=== PATIENT | male | born 1975 | race Caucasian/White ===

== ENCOUNTER 2018-08-03 03:36 | Emergency (ER) | payer SELFPAY ==
[2018-08-03] MEDS ORDERED: Albuterol/Ipratropium 3.0-0.5 MG/3 ML Neb Soln ONE ×3 (03:38→05:10)
[2018-08-03] MEDS ORDERED: methylPREDNISolone Sodium Succinate 125 MG/2 ML SDV ONE ×2 (03:41→03:42)
[2018-08-03] MEDS ORDERED: Sodium Chloride 0.9% 1,000 ML IV ONE (03:48)
[2018-08-03] MEDS ORDERED: Sodium Chloride 0.9% 10 ML Syringe FLUSH PRN (03:48)
[2018-08-03] MEDS ORDERED: Sodium Chloride 0.9% 2.5 ML Syringe FLUSH PRN (03:48)
[2018-08-03] MEDS ORDERED: Magnesium Sulfate/Water 2 GM in Premix Bag 1 BAG IV ONE (03:49)
[2018-08-03] MEDS ORDERED: LORazepam 2 MG/ML SDV IVPUSH ONE ×2 (03:49→04:03)
--- NOTE | 2018-08-03 03:59 | EDM.PDOC ---
ED HPI GENERAL MEDICAL PROBLEM - General Stated Complaint: ASTHMA ATTACK Time Seen by Provider: 08/03/18 03:47 - History of Present Illness INITIAL COMMENTS - FREE TEXT/NARRATIVE: HISTORY AND PHYSICAL: History of present illness: The patient is a 43-year-old male who has no stated history of pulmonary problems presents having an acute bronchospastic attack. According to the history which is sketchy from the patient but more from his girlfriend he has had coughing and shortness of breath for the last 2 or 3 days and it seemed to accelerate suddenly this evening where he couldn't get his breath and couldn't really do anything more than moan. Consider calling 911 she put him in the car and drove here. She tells me that he does smoke cigars but not cigarettes and has no drug use. She says that something similar to this happen a few years ago and he has since followed up with Dr. Bowen [facility] who gave him an inhaler which he uses just as needed. He has not had a recent fever he has no cardiac history and has no chest pain. He's had no abdominal pain nausea or vomiting. Girlfriend says he has had a slight cough but it was more dry. Her friend says that she does live with them and she is not ill or having any cough or shortness of breath and she does not believe that there has been any gas or carbon monoxide exposure in the home. She says the patient does not work with any chemicals or aerosols that could've aggravated him. On arrival here the patient can answer simple yes or no questions but is in extremis Review of systems: As per history of present illness and below otherwise all systems reviewed and negative. Past medical history: As per history of present illness and as reviewed below otherwise noncontributory. Surgical history: As per history of present illness and as reviewed below otherwise noncontributory. Social history: No reported history of drug or alcohol abuse. Family history: As per history of present illness and as reviewed below otherwise noncontributory. Physical exam: General: Well-developed well-nourished mildly overweight man who is nontoxic and on arrival is frantic moaning saying that he can't breathe and is cyanotic. He ran into the ED and was very anxious on arrival pacing and initial O2 sat was not able to be obtained as I was trying to coax the patient into the bed and place oxygen on him. Once oxygen was placed on the patient he pinked up immediately in the first 1 minute and his sats went recorded went from 80s up to 98. HEENT: Atraumatic, normocephalic, pupils reactive, negative for conjunctival pallor or scleral icterus, mucous membranes moist, throat clear, neck supple, nontender, trachea midline. Lungs: inspiratory and expiratory wheezing throughout all lung vaughn with diminished breath sounds at the bases left greater than right, there is abdominal work of breathing, there is no stridor,breath sounds equal bilaterally , chest nontender. Heart: S1S2, regular rhythm and tachycardic rate on my evaluation no overt murmurs appreciated Abdomen: Soft, nondistended, nontender. NABS Pelvis: Stable nontender. Genitourinary: Deferred. Rectal: Deferred. Extremities: Atraumatic, negative for cords or calf pain. Neurovascular unremarkable. no pedal edema Neuro: Awake, alert, oriented. Cranial nerves II through XII unremarkable. Cerebellum unremarkable. Motor and sensory unremarkable throughout. Exam nonfocal. Skin: Patient is very diaphoretic and on initial visual inspection was cyanotic throughout including his head and face. Once oxygen was applied that improved significantly within 1 minute. He does continue to moan throughout initial evaluation and care. Diagnostics: EKG portable chest x-ray CBC CMP magnesium ABG lactic acid Therapeutics: continuous duo nebs, Solu-Medrol, IV fluids, IV O2 monitor, magnesium Ativan Rocephin 0402: Patient is improving and moving much more air sats are good and he is now starting to be able to talk and he does verbalize that he is feeling better but he is still very anxious and fidgety in bed. We will continue with our treatment and continue to try to onsite health coach him and perform an ABG 0410: Patient clinically is improving but is still working to breathe and seems somewhat fatigued. At this point we will see with the ABG shows but I told the patient that I have a low threshold to intubate him and transfer him. I will also have a discussion with the girlfriend about this. 0425: As patient's ABG is showing acidosis with CO2 retention and he continues to become more drowsy we will go ahead and electively intubate him. Anesthesia is here at bedside and will perform the procedure please see their note. Flight team has been called for and is in route. I discussed this case at this time with Dr. Rashid at [facility] in the ER who accepts him for transfer. Girlfriend is at bedside and is aware of the plan and I've told the patient of my plan but I am unclear if he is understanding. I will continue to monitor his testing results and I will give him a dose of Rocephin and check a lactic acid for his elevated white cell count. Critical care time excluding procedures:31min Impression: Acute bronchospasm/respiratory distress with hypoxia Definitive disposition and diagnosis as appropriate pending reevaluation and review of above. - Related Data Allergies Allergy/AdvReac Type Severity Reaction Status Date / Time No Known Allergies Allergy Verified 08/03/18 04:14 Home Meds: Home Meds Albuterol Sulfate [Proair Hfa] 1 puff INH ASDIRECTED 08/03/18 [History] ED ROS GENERAL - Review of Systems Review Of Systems: ROS reveals no pertinent complaints other than HPI. ED EXAM, GENERAL - Physical Exam Exam: See Below (See dictation) Course - Vital Signs Last Recorded V/S: Last Vital Signs Temp 36.1 C 08/03/18 03:36 Pulse 146 H 08/03/18 04:25 Resp 34 H 08/03/18 04:25 BP 133/88 08/03/18 04:25 Pulse Ox 97 08/03/18 04:25 - Orders/Labs/Meds Orders: Active Orders 24 hr Category Date Time Status Cardiac Monitoring [RC] . DIRECTED Care 08/03/18 03:47 Active EKG Documentation Completion [RC] STAT Care 08/03/18 03:47 Active Oxygen Therapy, ED [RC] ASDIRECTED Care 08/03/18 03:47 Active Pulse Oximetry [RC] ASDIRECTED Care 08/03/18 03:47 Active RT Aerosol Therapy [RC] ASDIRECTED Care 08/03/18 04:05 Active RT Aerosol Therapy [RC] ASDIRECTED Care 08/03/18 04:09 Active RT Aerosol Therapy [RC] ASDIRECTED Care 08/03/18 04:09 Active Chest 1V Frontal [CR] Stat Exams 08/03/18 03:48 Taken DRUG SCREEN, URINE [URCHEM] Stat Lab 08/03/18 04:25 Ordered Magnesium Sulfate/Water [Magnesium Sulfate 2 GM in Med 08/03/18 03:49 Active Water 50 ML] 2 gm Premix Bag 1 bag IV ONETIME Sodium Chloride 0.9% [Normal Saline] 1,000 ml Med 08/03/18 03:48 Active IV STAT Sodium Chloride 0.9% [Saline Flush] Med 08/03/18 03:48 Active 10 ml FLUSH ASDIRECTED PRN Sodium Chloride 0.9% [Saline Flush] Med 08/03/18 03:48 Active 2.5 ml FLUSH ASDIRECTED PRN cefTRIAXone [Rocephin in Dextrose,Iso-Osm 2 GM/50 ML] 2 Med 08/03/18 04:26 Ordered gm Premix Bag 1 bag IV ONETIME Saline Lock Insert [OM.PC] Stat Oth 08/03/18 03:47 Ordered Medication Orders Sodium Chloride (Normal Saline) 1,000 mls @ 999 mls/hr IV STAT ONE Stop: 08/03/18 04:48 Last Admin: 08/03/18 03:50 Dose: 999 mls/hr Magnesium Sulfate 2 gm/ Premix 50 mls @ 25 mls/hr IV ONETIME ONE Stop: 08/03/18 05:48 Last Admin: 08/03/18 04:00 Dose: 25 mls/hr Ceftriaxone Sodium/Dextrose 2 (gm/ Premix) 50 mls @ 100 mls/hr IV ONETIME ONE Stop: 08/03/18 04:55 Sodium Chloride (Saline Flush) 10 ml FLUSH ASDIRECTED PRN PRN Reason: Keep Vein Open Sodium Chloride (Saline Flush) 2.5 ml FLUSH ASDIRECTED PRN PRN Reason: Keep Vein Open Labs: Laboratory Tests 08/03/18 08/03/18 08/03/18 Range/Units 03:35 03:35 04:01 WBC 28.73 H (4.0-11.0) K/uL RBC 5.45 (4.50-5.90) M/uL Hgb 16.5 (13.0-17.0) g/dL Hct 48.7 (38.0-50.0) % MCV 89.4 (80.0-98.0) fL MCH 30.3 (27.0-32.0) pg MCHC 33.9 (31.0-37.0) g/dL RDW Std Deviation 45.4 (28.0-62.0) fl RDW Coeff of Nathalie 14 (11.0-15.0) % Plt Count 357 (150-400) K/uL MPV 8.90 (7.40-12.00) fL Add Manual Diff YES Neutrophils % (Manual) 55 (48.0-80.0) % Band Neutrophils % 1 % Lymphocytes % (Manual) 29 (16.0-40.0) % Monocytes % (Manual) 7 (0.0-15.0) % Eosinophils % (Manual) 8 H (0.0-7.0) % Nucleated RBC % 0.0 /100WBC Absolute Seg Neuts 15.8 H (1.4-5.7) Band Neutrophils # 0.3 Lymphocytes # (Manual) 8.3 H (0.6-2.4) Monocytes # (Manual) 2.0 H (0.0-0.8) Eosinophils # (Manual) 2.3 H (0.0-0.7) Nucleated RBCs # 0 K/uL ABG pH 7.264 L (7.35-7.45) ABG pCO2 60 H (35-45) mmHG ABG pO2 92 (75-100) mmHG ABG HCO3 27 H (22-26) mEq/L ABG Total CO2 24.5 ABG Base Excess -1.3 (-2.0-2.0) Lactate (0.20-2.00) mmol/L Sodium 141 (136-148) mmol/L Potassium 3.3 L (3.5-5.1) mmol/L Chloride 102 (98-107) mmol/L Carbon Dioxide 25.9 (21.0-32.0) mmol/L BUN 13 (7.0-18.0) mg/dL Creatinine 1.4 H (0.8-1.3) mg/dL Est Cr Clr Drug Dosing TNP Estimated GFR (MDRD) 55.6 ml/min Glucose 177 H (74-106) mg/dL Calcium 9.3 (8.5-10.1) mg/dL Magnesium 2.7 H (1.8-2.4) mg/dL Total Bilirubin 0.5 (0.2-1.0) mg/dL AST 26 (15-37) IU/L ALT 32 (14-63) IU/L Alkaline Phosphatase 98 (46-116) U/L Total Protein 7.9 (6.4-8.2) g/dL Albumin 4.1 (3.4-5.0) g/dL Globulin 3.8 H (2.0-3.5) g/dL Albumin/Globulin Ratio 1.1 L (1.3-2.8) 08/03/18 Range/Units 04:01 WBC (4.0-11.0) K/uL RBC (4.50-5.90) M/uL Hgb (13.0-17.0) g/dL Hct (38.0-50.0) % MCV (80.0-98.0) fL MCH (27.0-32.0) pg MCHC (31.0-37.0) g/dL RDW Std Deviation (28.0-62.0) fl RDW Coeff of Nathalie (11.0-15.0) % Plt Count (150-400) K/uL MPV (7.40-12.00) fL Add Manual Diff Neutrophils % (Manual) (48.0-80.0) % Band Neutrophils % % Lymphocytes % (Manual) (16.0-40.0) % Monocytes % (Manual) (0.0-15.0) % Eosinophils % (Manual) (0.0-7.0) % Nucleated RBC % /100WBC Absolute Seg Neuts (1.4-5.7) Band Neutrophils # Lymphocytes # (Manual) (0.6-2.4) Monocytes # (Manual) (0.0-0.8) Eosinophils # (Manual) (0.0-0.7) Nucleated RBCs # K/uL ABG pH (7.35-7.45) ABG pCO2 (35-45) mmHG ABG pO2 (75-100) mmHG ABG HCO3 (22-26) mEq/L ABG Total CO2 ABG Base Excess (-2.0-2.0) Lactate 2.0 (0.20-2.00) mmol/L Sodium (136-148) mmol/L Potassium (3.5-5.1) mmol/L Chloride (98-107) mmol/L Carbon Dioxide (21.0-32.0) mmol/L BUN (7.0-18.0) mg/dL Creatinine (0.8-1.3) mg/dL Est Cr Clr Drug Dosing Estimated GFR (MDRD) ml/min Glucose (74-106) mg/dL Calcium (8.5-10.1) mg/dL Magnesium (1.8-2.4) mg/dL Total Bilirubin (0.2-1.0) mg/dL AST (15-37) IU/L ALT (14-63) IU/L Alkaline Phosphatase (46-116) U/L Total Protein (6.4-8.2) g/dL Albumin (3.4-5.0) g/dL Globulin (2.0-3.5) g/dL Albumin/Globulin Ratio (1.3-2.8) Meds: Medications Generic Name Dose Route Start Last Admin Trade Name Freq PRN Reason Stop Dose Admin Sodium Chloride 1,000 mls @ 999 mls/hr 08/03/18 03:48 08/03/18 03:50 Normal Saline IV 08/03/18 04:48 999 mls/hr STAT ONE Administration Magnesium Sulfate 2 gm/ Premix 50 mls @ 25 mls/hr 08/03/18 03:49 08/03/18 04: 00 IV 08/03/18 05:48 25 mls/hr ONETIME ONE Administration Ceftriaxone Sodium/Dextrose 2 50 mls @ 100 mls/hr 08/03/18 04:26 gm/ Premix IV 08/03/18 04:55 ONETIME ONE Sodium Chloride 10 ml 08/03/18 03:48 Saline Flush FLUSH ASDIRECTED PRN Keep Vein Open Sodium Chloride 2.5 ml 08/03/18 03:48 Saline Flush FLUSH ASDIRECTED PRN Keep Vein Open Discontinued Medications Generic Name Dose Route Start Last Admin Trade Name Freq PRN Reason Stop Dose Admin Albuterol/Ipratropium 3 ml 08/03/18 04:05 08/03/18 04:08 Duoneb 3.0-0.5 Mg/3 Ml NEB 08/03/18 04:06 3 ml ONETIME ONE Administration Albuterol/Ipratropium 3 ml 08/03/18 04:09 08/03/18 04:10 Duoneb 3.0-0.5 Mg/3 Ml NEB 08/03/18 04:10 3 ml ONETIME ONE Administration Albuterol/Ipratropium 3 ml 08/03/18 04:09 08/03/18 04:14 Duoneb 3.0-0.5 Mg/3 Ml NEB 08/03/18 04:10 3 ml ONETIME ONE Administration Ceftriaxone Sodium/Dextrose Confirm 08/03/18 04:28 Rocephin In Dextrose,Iso-Osm 2 Gm/50 Ml Administered 08/03/18 04:29 Dose 50 mls @ as directed .ROUTE .STK-MED ONE Lorazepam 0.5 mg 08/03/18 03:49 08/03/18 04:01 Ativan IVPUSH 08/03/18 03:50 0.5 mg ONETIME ONE Administration Lorazepam 0.5 mg 08/03/18 04:03 08/03/18 04:06 Ativan IVPUSH 08/03/18 04:04 Not Given ONETIME ONE Lorazepam 1 mg 08/03/18 04:05 08/03/18 04:08 Ativan IVPUSH 08/03/18 04:06 1 mg ONETIME STA Administration Lorazepam Confirm 08/03/18 04:05 08/03/18 04:10 Ativan Administered 08/03/18 04:06 Not Given Dose 2 mg .ROUTE .STK-MED ONE Methylprednisolone Sodium Succinate Confirm 08/03/18 03:41 08/03/18 04:10 Solu-Medrol Administered 08/03/18 03:42 Not Given Dose 125 mg .ROUTE .STK-MED ONE Methylprednisolone Sodium Succinate Confirm 08/03/18 03:42 08/03/18 04:00 Solu-Medrol Administered 08/03/18 03:43 125 mg Dose Administration 125 mg .ROUTE .STK-MED ONE Departure - Departure Time of Disposition: 04:32 Disposition: DC/Tfer to Acute Hospital 02 Condition: Critical Clinical Impression: Hypoxemia, CO2 retention Asthma with status asthmaticus Qualifiers: Asthma severity: severe Asthma persistence: unspecified Qualified Code(s): J45.902 - Unspecified asthma with status asthmaticus - Discharge Information Referrals: PCP,None [Primary Care Provider] - - My Orders Last 24 Hours: My Active Orders 08/03/18 03:47 Cardiac Monitoring [RC] . DIRECTED EKG Documentation Completion [RC] STAT Oxygen Therapy, ED [RC] ASDIRECTED Pulse Oximetry [RC] ASDIRECTED Saline Lock Insert [OM.PC] Stat 08/03/18 03:48 Chest 1V Frontal [CR] Stat Sodium Chloride 0.9% [Normal Saline] 1,000 ml IV STAT Sodium Chloride 0.9% [Saline Flush] 10 ml FLUSH ASDIRECTED PRN Sodium Chloride 0.9% [Saline Flush] 2.5 ml FLUSH ASDIRECTED PRN 08/03/18 03:49 Magnesium Sulfate/Water [Magnesium Sulfate 2 GM in Water 50 ML] 2 gm Premix Bag 1 bag IV ONETIME 08/03/18 04:05 RT Aerosol Therapy [RC] ASDIRECTED 08/03/18 04:09 RT Aerosol Therapy [RC] ASDIRECTED RT Aerosol Therapy [RC] ASDIRECTED 08/03/18 04:25 DRUG SCREEN, URINE [URCHEM] Stat 08/03/18 04:26 cefTRIAXone [Rocephin in Dextrose,Iso-Osm 2 GM/50 ML] 2 gm Premix Bag 1 bag IV ONETIME - Assessment/Plan Last 24 Hours: My Active Orders 08/03/18 03:47 Cardiac Monitoring [RC] . DIRECTED EKG Documentation Completion [RC] STAT Oxygen Therapy, ED [RC] ASDIRECTED Pulse Oximetry [RC] ASDIRECTED Saline Lock Insert [OM.PC] Stat 08/03/18 03:48 Chest 1V Frontal [CR] Stat Sodium Chloride 0.9% [Normal Saline] 1,000 ml IV STAT Sodium Chloride 0.9% [Saline Flush] 10 ml FLUSH ASDIRECTED PRN Sodium Chloride 0.9% [Saline Flush] 2.5 ml FLUSH ASDIRECTED PRN 08/03/18 03:49 Magnesium Sulfate/Water [Magnesium Sulfate 2 GM in Water 50 ML] 2 gm Premix Bag 1 bag IV ONETIME 08/03/18 04:05 RT Aerosol Therapy [RC] ASDIRECTED 08/03/18 04:09 RT Aerosol Therapy [RC] ASDIRECTED RT Aerosol Therapy [RC] ASDIRECTED 08/03/18 04:25 DRUG SCREEN, URINE [URCHEM] Stat 08/03/18 04:26 cefTRIAXone [Rocephin in Dextrose,Iso-Osm 2 GM/50 ML] 2 gm Premix Bag 1 bag IV ONETIME
[2018-08-03] MEDS ORDERED: LORazepam 2 MG/ML SDV ONE (04:05)
[2018-08-03] MEDS ORDERED: LORazepam 2 MG/ML SDV IVPUSH STA (04:05)
[2018-08-03] MEDS ORDERED: Albuterol/Ipratropium 3.0-0.5 MG/3 ML Neb Soln NEB ONE ×3 (04:05→04:09)
[2018-08-03 04:19] LABS: CHLORIDE,CL 102 mmol/L (98-107); SODIUM,NA 141 mmol/L (136-148)
[2018-08-03] MEDS ORDERED: cefTRIAXone 2 GM in Premix Bag 1 BAG IV ONE (04:26)
[2018-08-03] MEDS ORDERED: Succinylcholine 200 MG/10 ML MDV ONE (04:30)
[2018-08-03] MEDS ORDERED: Rocuronium 100 MG/10 ML MDV ONE (04:30)
--- NOTE | 2018-08-03 10:04 | PCM.SN ---
- Free Text/Narrative Note: Called to ER for intubation of pt. in acute respiratory distress and respiratory acidosis. Equipment, supplies, and staff assembled, pt prepared. IV RSI with cricoid pressure. Intubated easily times 1 attempt utilizing the Glidescope and #[id number]. Placement verified with colorometric ETCO2 indicator, as well as bilateral auscultation.Pt tolerated procedure well. Plan per ER physician is to transfer pt. at this time.
--- NOTE | 2018-08-04 13:32 | CR ---
EXAM DATE: 08/03/18 PATIENT'S AGE: 43 Patient: SARAH RICHARDSON Facility: [place], [place] Site . Site : 1975 Study: XRay Chest [id number]/17/2018 3:54:20 AM Ordering Physician: Doctor Dai Final Report: HISTORY: Chest pain and shortness of breath. COMPARISON: None available FINDINGS: A portable erect AP view of the chest was obtained at 0354 hours. The lungs are clear. No focal or diffuse infiltrates are present. The heart is normal in size. The mediastinum is normal in appearance. The osseous structures are normal in appearance for the patient`s age. IMPRESSION: NORMAL PORTABLE CHEST SINGLE VIEW. Dictated by Yaya Mckee MD @ Aug 03 2018 3:58AM (Electronic Signature) Report Signed by Proxy. JDUD
--- NOTE | 2018-08-04 13:33 | CR ---
EXAM DATE: 08/03/18 PATIENT'S AGE: 43 Patient: SARAH RICHARDSON Facility: [place], [place] Site . Site : 1975 Study: XRay Chest [id number]/17/2018 4:54:11 AM Ordering Physician: Agustín Damon Final Report: INDICATION: Intubation. TECHNIQUE: AP portable supine chest at 4:50 a.m. COMPARISON: Portable chest performed earlier on the same date at 3:50 a.m. FINDINGS: New endotracheal tube with its tip 3-4 cm above the gilberto. No pneumothorax. Clear lungs. Normal heart size and pulmonary vascularity. Impression : Interval intubation. Appropriate position of the endotracheal tube. No pneumothorax. Dictated by Ronn Estevez MD @ Aug 03 2018 5:53AM (Electronic Signature) Report Signed by Proxy. JUDD
== END 2018-08-03 05:40 ==
LOC: MW.ED 03:36
DX: J45.902 Unspecified asthma with status asthmaticus (principal); R09.02 Hypoxemia; E87.2 Acidosis; F17.290 Nicotine dependence, other tobacco product, uncomplicated; Z79.899 Other long term (current) drug therapy
CPT/HCPCS: 31500; 36600; 43753; 51702; 71045; 71045-26; 80053; 80305-QW; 82803; 83605; 83735; 85025; 94640; 96365; 96375; 99285; 99291; J0330; J0696; J2060; J2930; J3475; J7040; J7620-GY

== ENCOUNTER 2019-07-23 14:43 | Emergency (ER) | payer MEDICAID ==
[2019-07-23] MEDS ORDERED: Bacitracin Oint 1 GM U/D Packet TOP ONE (14:51)
[2019-07-23] MEDS ORDERED: Diphtheria,Pertussis(Acell),Tetanus Vaccine 0.5 ML Syringe IM ONE (14:51)
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
--- NOTE | 2019-07-23 16:31 | CR ---
Left ankle: Three views of the left ankle were obtained. Comparison: No previous ankle study. Ankle mortise is symmetric. No fracture, dislocation or other bony abnormality is seen. Several minimal dystrophic calcifications are noted within the anterior lockhart. Impression: Findings believed to be incidental. Nothing acute is seen on left ankle exam. Diagnostic code #2 MTDD
--- NOTE | 2019-07-23 16:32 | CR ---
Pelvis and right hip: AP view of the pelvis was obtained as well as coned down AP and frog-leg lateral views of the right hip. Comparison: No previous study. Joint spaces within both hips are maintained. Sacroiliac joints appear within normal limits. No fracture or subluxation is seen. Impression: No abnormality is seen on AP pelvis or on two-view right hip exam. Diagnostic code #1 MTDD
--- NOTE | 2019-07-23 16:32 | CR ---
Chest: Two views of the chest were obtained. Comparison: No prior chest x-ray. Heart size and mediastinum are normal. Lungs are clear but hyperinflated. Bony structures appear unremarkable for the patient's age. Impression: 1. Hyperinflated lungs. Please correlate if patient has history of smoking for this to represent emphysematous change. 2. Nothing acute is otherwise seen. Diagnostic code #2 MTDD
== END 2019-07-23 16:45 | disposition home or self-care (01) ==
LOC: MW.ED 14:43
DX: S80.212A Abrasion, left knee, initial encounter (principal); S80.211A Abrasion, right knee, initial encounter; S90.512A Abrasion, left ankle, initial encounter; S50.811A Abrasion of right forearm, initial encounter; S50.311A Abrasion of right elbow, initial encounter; R07.9 Chest pain, unspecified; M79.651 Pain in right thigh; Z23 Encounter for immunization; V27.4XXA Motorcycle driver injured in collision with fixed or stationary object in traffic accident, initial encounter
CPT/HCPCS: 71046; 71046-26; 73502-26-RT; 73502-RT; 73610-26-LT; 73610-LT; 90471; 90715; 99283-25

== ENCOUNTER 2019-07-24 21:46 | Emergency (ER) | payer MEDICAID ==
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
--- NOTE | 2019-07-24 22:54 | CR ---
CHEST 2 VIEWS INDICATION: Short of breath. IMPRESSION: Normal heart size and vascular pattern. Lungs are clear. No pneumothorax or pleural effusion. Dictated by Mono Andujar MD @ Jul 24 2019 10:51PM Signed by Dr. Mono Andujar @ Jul 24 2019 10:52PM
== END 2019-07-24 22:58 ==
LOC: MW.ED 21:46
DX: R07.89 Other chest pain (principal); M25.551 Pain in right hip; S40.812A Abrasion of left upper arm, initial encounter; S40.811A Abrasion of right upper arm, initial encounter; Z02.89 Encounter for other administrative examinations; V27.4XXA Motorcycle driver injured in collision with fixed or stationary object in traffic accident, initial encounter
CPT/HCPCS: 71045; 71045-26; 93005; 99284-25

== ENCOUNTER 2022-02-23 08:39 | Inpatient (IN) | payer SELFPAY ==
[2022-02-23] MEDS ORDERED: predniSONE 20 MG Tab PO ONE (08:56)
[2022-02-23] MEDS ORDERED: Albuterol/Ipratropium 3.0-0.5 MG/3 ML Neb Soln NEB ONE ×2 (08:56→12:02)
[2022-02-23 09:50] LABS: BLOOD UREA NITROGEN,BUN 14 mg/dL (7.0-18.0); CARBON DIOXIDE,CO2 30.2 mmol/L (21.0-32.0); CHLORIDE,CL 102 mmol/L (98-107); GLUCOSE RANDOM 116 mg/dL (74-106); POTASSIUM,K 3.9 mmol/L (3.5-5.1); SODIUM,NA 140 mmol/L (136-148)
[2022-02-23] MEDS ORDERED: Acetaminophen 325 MG Tab PO PRN (14:02)
[2022-02-23] MEDS ORDERED: Lactated Ringers 1,000 ML IV ONE (14:02)
[2022-02-23] MEDS: Enoxaparin 40 MG/0.4 ML Syringe SUBCUT SCH (15:17)
[2022-02-23] MEDS: Azithromycin 250 MG Tab PO SCH (15:18)
[2022-02-23] MEDS: methylPREDNISolone Sodium Succinate 40 MG/1 ML SDV IVPUSH SCH ×2 (15:18→21:29)
[2022-02-23] MEDS ORDERED: Albuterol/Ipratropium 3.0-0.5 MG/3 ML Neb Soln ONE (15:35)
[2022-02-23] MEDS ORDERED: Iopamidol 755 MG/ML 500 ML Multipack Bottle IVPUSH ONE (18:21)
[2022-02-23] MEDS: Albuterol/Ipratropium 3.0-0.5 MG/3 ML Neb Soln NEB SCH ×2 (18:54→21:29)
[2022-02-23] MEDS: Montelukast 10 MG Tab PO SCH (21:29)
[2022-02-24] MEDS: Albuterol/Ipratropium 3.0-0.5 MG/3 ML Neb Soln NEB SCH ×6 (01:39→21:21)
[2022-02-24] MEDS: methylPREDNISolone Sodium Succinate 40 MG/1 ML SDV IVPUSH SCH ×3 (05:43→21:21)
[2022-02-24 07:07] LABS: BLOOD UREA NITROGEN,BUN 21 mg/dL (7.0-18.0); CARBON DIOXIDE,CO2 26.4 mmol/L (21.0-32.0); CHLORIDE,CL 101 mmol/L (98-107); GLUCOSE RANDOM 188 mg/dL (74-106); POTASSIUM,K 4.2 mmol/L (3.5-5.1); SODIUM,NA 137 mmol/L (136-148)
[2022-02-24] MEDS: Azithromycin 250 MG Tab PO SCH (14:32)
[2022-02-24] MEDS: Enoxaparin 40 MG/0.4 ML Syringe SUBCUT SCH (14:33)
[2022-02-24] MEDS ORDERED: Lactated Ringers 1,000 ML IV ONE (15:28)
[2022-02-24] MEDS: Benzonatate 100 MG Cap PO PRN (16:05)
[2022-02-24] MEDS: Montelukast 10 MG Tab PO SCH (20:43)
[2022-02-25] MEDS: Benzonatate 100 MG Cap PO PRN ×2 (01:03→20:43)
[2022-02-25] MEDS: methylPREDNISolone Sodium Succinate 40 MG/1 ML SDV IVPUSH SCH ×3 (06:11→23:09)
[2022-02-25 06:42] LABS: BLOOD UREA NITROGEN,BUN 24 mg/dL (7.0-18.0); CARBON DIOXIDE,CO2 25.8 mmol/L (21.0-32.0); CHLORIDE,CL 104 mmol/L (98-107); GLUCOSE RANDOM 172 mg/dL (74-106); POTASSIUM,K 4.1 mmol/L (3.5-5.1); SODIUM,NA 138 mmol/L (136-148)
[2022-02-25] MEDS: Azithromycin 250 MG Tab PO SCH (14:33)
[2022-02-25] MEDS: Enoxaparin 40 MG/0.4 ML Syringe SUBCUT SCH (14:34)
[2022-02-25] MEDS: Montelukast 10 MG Tab PO SCH (20:43)
[2022-02-25] MEDS: Albuterol/Ipratropium 3.0-0.5 MG/3 ML Neb Soln NEB PRN (20:43)
[2022-02-26 06:21] LABS: BLOOD UREA NITROGEN,BUN 22 mg/dL (7.0-18.0); CARBON DIOXIDE,CO2 28.4 mmol/L (21.0-32.0); CHLORIDE,CL 104 mmol/L (98-107); GLUCOSE RANDOM 145 mg/dL (74-106); POTASSIUM,K 4.1 mmol/L (3.5-5.1); SODIUM,NA 137 mmol/L (136-148)
[2022-02-26] MEDS: methylPREDNISolone Sodium Succinate 40 MG/1 ML SDV IVPUSH SCH ×2 (11:11→23:09)
[2022-02-26] MEDS: Fluticasone/Salmeterol 250-50 MCG Inhalation Powder 14/Diskus INH SCH ×2 (11:11→21:23)
[2022-02-26] MEDS: Azithromycin 250 MG Tab PO SCH (15:46)
[2022-02-26] MEDS: Enoxaparin 40 MG/0.4 ML Syringe SUBCUT SCH (15:46)
[2022-02-26] MEDS: Albuterol/Ipratropium 3.0-0.5 MG/3 ML Neb Soln NEB PRN (16:27)
[2022-02-26] MEDS: Montelukast 10 MG Tab PO SCH (21:23)
[2022-02-27 06:40] LABS: BLOOD UREA NITROGEN,BUN 21 mg/dL (7.0-18.0); CARBON DIOXIDE,CO2 28.2 mmol/L (21.0-32.0); CHLORIDE,CL 104 mmol/L (98-107); GLUCOSE RANDOM 147 mg/dL (74-106); POTASSIUM,K 4.3 mmol/L (3.5-5.1); SODIUM,NA 139 mmol/L (136-148)
[2022-02-27] MEDS: Fluticasone/Salmeterol 250-50 MCG Inhalation Powder 14/Diskus INH SCH (08:42)
[2022-02-27] MEDS ORDERED: Loratadine 10 MG Tab PO SCH (09:00)
[2022-02-27] MEDS: methylPREDNISolone Sodium Succinate 40 MG/1 ML SDV IVPUSH SCH (11:04)
[2022-02-27] MEDS: Albuterol/Ipratropium 3.0-0.5 MG/3 ML Neb Soln NEB PRN (12:26)
== END 2022-02-27 12:30 | disposition home or self-care (01) | DRG 189 ==
LOC: MW.ED 08:39 → MW.MS 12:16 → OBSVTOIN 15:27 → MW.MS 18:35
PROVIDERS: ADMIT Student in an Organized Health Care Education/Training Program; ATTEND Student in an Organized Health Care Education/Training Program
DX: J96.01 Acute respiratory failure with hypoxia (principal); J45.41 Moderate persistent asthma with (acute) exacerbation; F15.10 Other stimulant abuse, uncomplicated; F17.220 Nicotine dependence, chewing tobacco, uncomplicated; Z20.822 Contact with and (suspected) exposure to COVID-19
CPT/HCPCS: 36415; 36600; 71045; 71045-26; 71275; 71275-26; 80048; 80053; 80305-QW; 82803; 83735; 83880; 84100; 84484; 85025; 85610; 93005; 93010; 94640; 99284; 99285-25; A9270-GY; J1650; J2920; J7120; J7620-GY; Q9967; U0002

== ENCOUNTER 2022-04-18 14:53 | Inpatient (IN) | payer SELFPAY ==
[2022-04-18] MEDS ORDERED: Albuterol/Ipratropium 3.0-0.5 MG/3 ML Neb Soln NEB ONE ×5 (14:56→16:52)
[2022-04-18] MEDS ORDERED: Sodium Chloride 0.9% 1,000 ML IV ONE (14:56)
[2022-04-18] MEDS ORDERED: methylPREDNISolone Sodium Succinate 125 MG/2 ML SDV IVPUSH ONE (14:56)
[2022-04-18 16:08] LABS: BLOOD UREA NITROGEN,BUN 15 mg/dL (7.0-18.0); CARBON DIOXIDE,CO2 27.4 mmol/L (21.0-32.0); CHLORIDE,CL 103 mmol/L (98-107); GLUCOSE RANDOM 140 mg/dL (74-106); POTASSIUM,K 4.1 mmol/L (3.5-5.1); SODIUM,NA 137 mmol/L (136-148)
[2022-04-18] MEDS ORDERED: Benzonatate 100 MG Cap PO PRN (17:44)
[2022-04-18] MEDS ORDERED: Azithromycin 500 MG in Sodium Chloride 0.9% 250 ML IV SCH ×4 (17:45)
[2022-04-18] MEDS: Azithromycin 500 MG in Sodium Chloride 0.9% 250 ML IV SCH (18:20)
[2022-04-18] MEDS: Enoxaparin 40 MG/0.4 ML Syringe SUBCUT SCH (18:24)
[2022-04-18] MEDS: methylPREDNISolone Sodium Succinate 40 MG/1 ML SDV IVPUSH SCH (18:25)
[2022-04-18] MEDS: Montelukast 10 MG Tab PO SCH (21:03)
[2022-04-18] MEDS: Albuterol/Ipratropium 3.0-0.5 MG/3 ML Neb Soln NEB SCH (21:03)
[2022-04-19] MEDS: methylPREDNISolone Sodium Succinate 40 MG/1 ML SDV IVPUSH SCH ×3 (02:07→17:36)
[2022-04-19] MEDS ORDERED: Albuterol/Ipratropium 3.0-0.5 MG/3 ML Neb Soln ONE (06:34)
[2022-04-19] MEDS: Albuterol/Ipratropium 3.0-0.5 MG/3 ML Neb Soln NEB SCH ×2 (06:39→10:01)
[2022-04-19] MEDS: Acetaminophen 325 MG Tab PO PRN ×2 (06:48→13:26)
[2022-04-19 07:46] LABS: BLOOD UREA NITROGEN,BUN 15 mg/dL (7.0-18.0); CARBON DIOXIDE,CO2 26.4 mmol/L (21.0-32.0); CHLORIDE,CL 103 mmol/L (98-107); GLUCOSE RANDOM 151 mg/dL (74-106); POTASSIUM,K 4.3 mmol/L (3.5-5.1); SODIUM,NA 139 mmol/L (136-148)
[2022-04-19] MEDS ORDERED: Pantoprazole 40 MG in Sodium Chloride 0.9% 10 ML IVPUSH SCH (09:00)
[2022-04-19] MEDS: Pantoprazole 40 MG Tab.CR PO SCH (09:06)
[2022-04-19] MEDS: Albuterol/Ipratropium 3.0-0.5 MG/3 ML Neb Soln NEB PRN ×3 (13:38→21:48)
[2022-04-19] MEDS: Enoxaparin 40 MG/0.4 ML Syringe SUBCUT SCH (17:36)
[2022-04-19] MEDS: Azithromycin 500 MG in Sodium Chloride 0.9% 250 ML IV SCH (17:37)
[2022-04-19] MEDS: Montelukast 10 MG Tab PO SCH (21:19)
[2022-04-20] MEDS: Albuterol/Ipratropium 3.0-0.5 MG/3 ML Neb Soln NEB PRN (02:17)
[2022-04-20] MEDS: methylPREDNISolone Sodium Succinate 40 MG/1 ML SDV IVPUSH SCH ×3 (02:17→18:24)
[2022-04-20] MEDS: Albuterol/Ipratropium 3.0-0.5 MG/3 ML Neb Soln NEB SCH ×5 (08:25→21:39)
[2022-04-20] MEDS: Pantoprazole 40 MG Tab.CR PO SCH (09:13)
[2022-04-20 10:06] LABS: BLOOD UREA NITROGEN,BUN 27 mg/dL (7.0-18.0); CARBON DIOXIDE,CO2 29.5 mmol/L (21.0-32.0); CHLORIDE,CL 104 mmol/L (98-107); GLUCOSE RANDOM 189 mg/dL (74-106); POTASSIUM,K 4.4 mmol/L (3.5-5.1); SODIUM,NA 138 mmol/L (136-148)
[2022-04-20] MEDS: cefTRIAXone 1 GM in Sodium Chloride 0.9% 50 ML IV SCH ×2 (10:54→21:39)
[2022-04-20] MEDS: Azithromycin 500 MG in Sodium Chloride 0.9% 250 ML IV SCH (18:24)
[2022-04-20] MEDS: Enoxaparin 40 MG/0.4 ML Syringe SUBCUT SCH (18:24)
[2022-04-20] MEDS: Montelukast 10 MG Tab PO SCH (21:39)
[2022-04-21] MEDS: Albuterol/Ipratropium 3.0-0.5 MG/3 ML Neb Soln NEB SCH ×6 (02:28→21:10)
[2022-04-21] MEDS: methylPREDNISolone Sodium Succinate 40 MG/1 ML SDV IVPUSH SCH ×3 (02:28→17:14)
[2022-04-21 06:45] LABS: BLOOD UREA NITROGEN,BUN 24 mg/dL (7.0-18.0); CARBON DIOXIDE,CO2 30.6 mmol/L (21.0-32.0); CHLORIDE,CL 101 mmol/L (98-107); GLUCOSE RANDOM 145 mg/dL (74-106); POTASSIUM,K 4.4 mmol/L (3.5-5.1); SODIUM,NA 138 mmol/L (136-148)
[2022-04-21] MEDS: Pantoprazole 40 MG Tab.CR PO SCH (09:39)
[2022-04-21] MEDS: cefTRIAXone 1 GM in Sodium Chloride 0.9% 50 ML IV SCH ×2 (09:39→21:10)
[2022-04-21] MEDS: Azithromycin 500 MG in Sodium Chloride 0.9% 250 ML IV SCH (17:13)
[2022-04-21] MEDS: Enoxaparin 40 MG/0.4 ML Syringe SUBCUT SCH (17:17)
[2022-04-21] MEDS: Montelukast 10 MG Tab PO SCH (21:10)
[2022-04-22] MEDS: Albuterol/Ipratropium 3.0-0.5 MG/3 ML Neb Soln NEB SCH ×3 (01:34→09:36)
[2022-04-22] MEDS: methylPREDNISolone Sodium Succinate 40 MG/1 ML SDV IVPUSH SCH ×2 (01:34→09:00)
[2022-04-22 06:43] LABS: BLOOD UREA NITROGEN,BUN 24 mg/dL (7.0-18.0); CARBON DIOXIDE,CO2 28.7 mmol/L (21.0-32.0); CHLORIDE,CL 102 mmol/L (98-107); GLUCOSE RANDOM 160 mg/dL (74-106); POTASSIUM,K 4.1 mmol/L (3.5-5.1); SODIUM,NA 141 mmol/L (136-148)
[2022-04-22] MEDS: Pantoprazole 40 MG Tab.CR PO SCH (08:57)
[2022-04-22] MEDS: cefTRIAXone 1 GM in Sodium Chloride 0.9% 50 ML IV SCH (09:00)
== END 2022-04-22 10:45 | disposition home or self-care (01) | DRG 203 ==
LOC: MW.ED 14:53 → MW.MS 17:31 → OBSVTOIN 04-20 10:36 → MW.MS 04-20 11:01
PROVIDERS: ADMIT Internal Medicine; ATTEND Internal Medicine
DX: J45.41 Moderate persistent asthma with (acute) exacerbation (principal); D72.829 Elevated white blood cell count, unspecified; G47.33 Obstructive sleep apnea (adult) (pediatric); Z20.822 Contact with and (suspected) exposure to COVID-19; F15.10 Other stimulant abuse, uncomplicated; Z79.51 Long term (current) use of inhaled steroids; R09.02 Hypoxemia
CPT/HCPCS: 36415; 71045; 71045-26; 71046; 71046-26; 80048; 80053; 80305-QW; 81003; 82803; 83735; 84484; 85025; 85027; 86140; 93005; 93010; 94640; 96365; 96372; 96374; 96375; 96376; 99284; 99285-25; A9270-GY; G0378; J0456; J0696; J1650; J2920; J2930; J7030; J7050; J7620-GY; U0002

== ENCOUNTER 2023-03-12 20:02 | Emergency (ER) | payer SELFPAY ==
[2023-03-12] MEDS ORDERED: Lidocaine 1% with EPINEPHrine 1:100,000 20 ML MDV ONE (20:32)
[2023-03-12] MEDS ORDERED: Lidocaine 1% with EPINEPHrine 1:100,000 20 ML MDV INJECT ONE (20:37)
[2023-03-12] MEDS ORDERED: Bacitracin Oint 1 GM U/D Packet TOP ONE (20:45)
[2023-03-12] MEDS ORDERED: Amoxicillin/Clavulanate K 875-125 MG Tab PO ONE (21:02)
== END 2023-03-12 21:15 | disposition home or self-care (01) ==
LOC: MW.ED 20:02
DX: S61.452A Open bite of left hand, initial encounter (principal); S61.451A Open bite of right hand, initial encounter; S01.01XA Laceration without foreign body of scalp, initial encounter; J45.909 Unspecified asthma, uncomplicated; Z79.899 Other long term (current) drug therapy; W54.0XXA Bitten by dog, initial encounter
CPT/HCPCS: 12005; 73130; 99283; A9270; J3490

== ENCOUNTER 2023-12-12 20:40 | Emergency (ER) | payer SELFPAY ==
[2023-12-12] MEDS ORDERED: fentaNYL 100 MCG/2 ML SDV IVPUSH ONE ×2 (20:49→21:15)
[2023-12-12] MEDS ORDERED: Ampicillin/Sulbactam Na 3 GM in Sodium Chloride 0.9% 100 ML IV ONE (20:50)
[2023-12-12 20:55] LABS: BASOPHILS PERCENT AUTO 0.5 % (0.0-1.0); EOSINOPHILS PERCENT AUTO 2.1 % (0.0-6.0); HEMATOCRIT 46.4 % (42.0-52.0); HEMOGLOBIN 15.1 g/dL (14.0-18.0); IMMATURE GRAN ABSOLUTE AUTO 0.11 K/uL (0.00-0.05); IMMATURE GRAN PERCENT AUTO 0.6 % (0.0-0.4); LYMPHOCYTES ABSOLUTE AUTO 4.67 K/uL (1.00-4.80); LYMPHOCYTES PERCENT AUTO 24.4 % (24.0-44.0); MEAN CORPUSCULAR HEMOGLOBIN 28.9 pg (28.0-32.0); MEAN CORPUSCULAR HGB CONC 32.5 g/dL (32.0-36.0); MEAN CORPUSCULAR VOLUME 88.7 fL (83.0-99.0); MEAN PLATELET VOLUME 8.8 fL (9.4-12.4); MONOCYTES ABSOLUTE AUTO 1.31 K/uL (0.00-0.80); MONOCYTES PERCENT AUTO 6.8 % (0.0-8.0); NEUTROPHILS ABSOLUTE AUTO 12.57 K/uL (1.80-7.70); NEUTROPHILS PERCENT AUTO 65.6 % (41.0-71.0); PLATELET COUNT,PLT 404 K/uL (150-400); RED BLOOD CELL COUNT 5.23 M/uL (4.52-5.90); WHITE BLOOD CELL COUNT,WBC 19.16 K/uL (3.9-11.3)
[2023-12-12] MEDS ORDERED: Diphtheria,Pertussis(Acell),Tetanus Vaccine 0.5 ML Syringe IM ONE (20:55)
[2023-12-12] MEDS ORDERED: HYDROmorphone 1 MG/ML Syringe IVPUSH ONE (21:07)
[2023-12-12] MEDS ORDERED: Naloxone 0.4 MG/ML SDV IVPUSH PRN (21:07)
[2023-12-12 21:08] LABS: BLOOD UREA NITROGEN,BUN 12 mg/dL (7.0-18.0); CALCIUM 9.2 mg/dL (8.5-10.1); CARBON DIOXIDE,CO2 14.3 mmol/L (21.0-32.0); CHLORIDE,CL 104 mmol/L (98-107); CREATINE KINASE,CK 234 U/L (26-308); CREATININE 1.9 mg/dL (0.8-1.3); GLUCOSE RANDOM 147 mg/dL (74-106); POTASSIUM,K 3.9 mmol/L (3.5-5.1); SODIUM,NA 143 mmol/L (136-148)
[2023-12-12 21:09] LABS: ESTIMATED GFR 43 mL/min (>60); ETHANOL BLOOD MEDICAL < 3.0 mg/dL
[2023-12-12] MEDS ORDERED: Sodium Chloride 0.9% 1,000 ML IV ONE (21:58)
== END 2023-12-12 22:50 ==
LOC: MW.ED 20:40
DX: S68.125A Partial traumatic metacarpophalangeal amputation of left ring finger, initial encounter (principal); S51.851A Open bite of right forearm, initial encounter; S51.852A Open bite of left forearm, initial encounter; Z23 Encounter for immunization; J45.909 Unspecified asthma, uncomplicated; Z79.899 Other long term (current) drug therapy; W54.0XXA Bitten by dog, initial encounter
CPT/HCPCS: 36415; 73090; 73120; 80048; 80307; 82550; 85025; 90471; 90715; 96361; 96365; 96375; 99285; J0295; J1170; J3010; J3490; J7030

== ENCOUNTER 2023-12-17 09:49 | Emergency (ER) | payer SELFPAY ==
[2023-12-17] MEDS ORDERED: Sulfamethoxazole/Trimethoprim 800-160 MG Tab PO ONE (10:16)
[2023-12-17 10:35] LABS: BASOPHILS ABSOLUTE AUTO 0.05 K/uL (0.00-0.20); BASOPHILS PERCENT AUTO 0.4 % (0.0-1.0); EOSINOPHILS ABSOLUTE AUTO 0.37 K/uL (0.00-0.45); EOSINOPHILS PERCENT AUTO 3.1 % (0.0-6.0); HEMATOCRIT 38.9 % (42.0-52.0); IMMATURE GRAN ABSOLUTE AUTO 0.07 K/uL (0.00-0.05); IMMATURE GRAN PERCENT AUTO 0.6 % (0.0-0.4); LYMPHOCYTES ABSOLUTE AUTO 2.34 K/uL (1.00-4.80); LYMPHOCYTES PERCENT AUTO 19.4 % (24.0-44.0); MEAN CORPUSCULAR HEMOGLOBIN 28.8 pg (28.0-32.0); MEAN CORPUSCULAR HGB CONC 33.4 g/dL (32.0-36.0); MEAN CORPUSCULAR VOLUME 86.1 fL (83.0-99.0); MEAN PLATELET VOLUME 8.4 fL (9.4-12.4); MONOCYTES ABSOLUTE AUTO 0.85 K/uL (0.00-0.80); NEUTROPHILS ABSOLUTE AUTO 8.41 K/uL (1.80-7.70); NEUTROPHILS PERCENT AUTO 69.5 % (41.0-71.0); PLATELET COUNT,PLT 428 K/uL (150-400); RED BLOOD CELL COUNT 4.52 M/uL (4.52-5.90); WHITE BLOOD CELL COUNT,WBC 12.09 K/uL (3.9-11.3)
== END 2023-12-17 11:25 | disposition home or self-care (01) ==
LOC: MW.ED 09:49
DX: S41.151D Open bite of right upper arm, subsequent encounter (principal); Z48.00 Encounter for change or removal of nonsurgical wound dressing; W54.0XXD Bitten by dog, subsequent encounter
CPT/HCPCS: 36415; 85025; 99283; A9270

== ENCOUNTER 2024-07-14 21:25 | Emergency (ER) | payer MEDICAID ==
[2024-07-14] MEDS ORDERED: Sodium Chloride 0.9% 20 ML SDV IV PRN (23:21)
[2024-07-14] MEDS: Acetaminophen 500 MG Tab PO ONE (23:27)
[2024-07-14] MEDS: Sodium Chloride 0.9% 2.5 ML Syringe FLUSH PRN (23:28)
[2024-07-14] MEDS: Sodium Chloride 0.9% 10 ML Syringe FLUSH PRN (23:28)
[2024-07-14] MEDS: Dexamethasone 4 MG/ML SDV IVPUSH ONE (23:29)
[2024-07-14 23:59] LABS: BASOPHILS ABSOLUTE AUTO 0.06 K/uL (0.00-0.20); BASOPHILS PERCENT AUTO 0.4 % (0.0-1.0); EOSINOPHILS ABSOLUTE AUTO 0.29 K/uL (0.00-0.45); EOSINOPHILS PERCENT AUTO 2.1 % (0.0-6.0); HEMATOCRIT 46.8 % (42.0-52.0); HEMOGLOBIN 15.3 g/dL (14.0-18.0); IMMATURE GRAN ABSOLUTE AUTO 0.05 K/uL (0.00-0.05); IMMATURE GRAN PERCENT AUTO 0.4 % (0.0-0.4); LYMPHOCYTES ABSOLUTE AUTO 1.88 K/uL (1.00-4.80); LYMPHOCYTES PERCENT AUTO 13.6 % (24.0-44.0); MEAN CORPUSCULAR HEMOGLOBIN 27.4 pg (28.0-32.0); MEAN CORPUSCULAR HGB CONC 32.7 g/dL (32.0-36.0); MEAN CORPUSCULAR VOLUME 83.9 fL (83.0-99.0); MEAN PLATELET VOLUME 8.3 fL (9.4-12.4); NEUTROPHILS ABSOLUTE AUTO 10.45 K/uL (1.80-7.70); NEUTROPHILS PERCENT AUTO 75.5 % (41.0-71.0); PLATELET COUNT,PLT 313 K/uL (150-400); RED BLOOD CELL COUNT 5.58 M/uL (4.52-5.90); WHITE BLOOD CELL COUNT,WBC 13.83 K/uL (3.9-11.3)
[2024-07-15 00:22] LABS: A/G RATIO 0.8 (0.9-1.6); BILIRUBIN TOTAL 0.3 mg/dL (0.2-1.0); C-REACTIVE PROTEIN 1.28 mg/dL (<0.3); CALCIUM 8.8 mg/dL (8.5-10.1); CARBON DIOXIDE,CO2 28.8 mmol/L (21.0-32.0); CREATININE 1.1 mg/dL (0.8-1.3); EST CRCL DRUG DOSING (CG) 88.42 mL/min; PROTEIN TOTAL,TP 6.8 g/dL (6.4-8.2)
[2024-07-15] MEDS: Iopamidol 755 MG/ML 500 ML Multipack Bottle IVPUSH STA (00:46)
[2024-07-15] MEDS: Ketorolac 30 MG/ML SDV IVPUSH ONE (01:03)
[2024-07-15] MEDS: Ampicillin/Sulbactam Na 3 GM in Sodium Chloride 0.9% 100 ML IV ONE (01:23)
== END 2024-07-15 02:03 | disposition home or self-care (01) ==
LOC: MW.ED 21:25
DX: K04.7 Periapical abscess without sinus (principal); L03.211 Cellulitis of face; K02.9 Dental caries, unspecified; I10 Essential (primary) hypertension; E78.00 Pure hypercholesterolemia, unspecified
CPT/HCPCS: 36415; 70487; 80053; 85025; 85652; 86140; 96365; 96375; 99284; A9270; J0295; J1100; J1885; J3490; Q9967